=== PATIENT | male | born 1970 | race African-American/Black ===

== ENCOUNTER 2019-05-23 13:12 | Inpatient (IN) ==
[2019-05-23] MEDS ORDERED: DICYCLOMINE 10 MG CAPSULE PO PRN (14:19)
[2019-05-23] MEDS ORDERED: LORazepam 2 MG/1 ML VIAL IV PRN (14:19)
[2019-05-23] MEDS ORDERED: METHOCARBAMOL 750 MG TABLET PO PRN (14:19)
[2019-05-23] MEDS ORDERED: THIAMINE INJ 100 MG, FOLIC ACID INJ 1 MG, MULTIVITAMIN INJ 10 ML in SODIUM CHLORIDE 0.9... IV ONE (14:19)
[2019-05-23] MEDS ORDERED: HydrOXYzine PAMOATE 25 MG CAPSULE PO PRN (14:19)
[2019-05-23] MEDS ORDERED: GLUCAGON 1 MG VIAL IM PRN (14:20)
[2019-05-23] MEDS ORDERED: ACETAMINOPHEN 325 MG TABLET PO PRN (14:20)
[2019-05-23] MEDS ORDERED: ONDANSETRON 4 MG/2 ML VIAL IV PRN (14:20)
[2019-05-23] MEDS ORDERED: DEXTROSE 10% 250 ML BAG IV PRN (14:20)
[2019-05-23 15:11] LABS: Basophils % 0.4 % (0.0-0.8); Eosinophils # 0.3 10*3/uL (0.0-0.87); Eosinophils % 4.9 % (0.00-10.9); Hematocrit 41.9 VOL% (42.0-52.0); Hemoglobin 13.8 GM/DL (14.0-18.0); Immature Granulocytes % 0.4 %; Immature Granulocytes Absolute 0.02 #; Lymphocytes # 1.9 10*3/uL (1.4-4.0); Lymphocytes % 34.9 % (21.2-54.2); Mean Corpuscular HGB Conc 32.9 GM/DL (32-36); Mean Corpuscular Volume 102.4 FL (87-102); Mean Platelet Volume 11.6 FL (9.6-12.0); Neutrophils % 47.4 % (38.7-73.9); Red Blood Count 4.09 MC/CUMM (3.8-5.5); Red Cell Distribution Width 15.7 % (9.3-17.3); White Blood Count 5.3 T/CUMM (4-12)
[2019-05-23 15:12] LABS: Platelet Count 78 T/CUMM (130-400)
[2019-05-23 15:30] LABS: Hypochromasia Slight; Platelet Estimate Decreased
[2019-05-23 15:31] LABS: Albumin 3.3 G/DL (3.4-5.0); Bilirubin,Total 3.6 MG/DL (0.2-1.0); Calcium 9.1 MG/DL (8.5-10.1); Osmolality,Calculated 263.7 MOS/KG (273-304); Total Protein 8.4 G/DL (6.4-8.3)
[2019-05-23 16:30] LABS: Apearance,Urine CLEAR (Clear); Bilirubin,Urine Small mg/dL (Negative); Blood, Urine Small mg/dL (Negative); Glucose,Urine (UA) Negative (Negative); Ketones,Urine Negative (Negative); Mucus,Urine Occasional /LPF (Occasional); Nitrite,Urine Negative (Negative); Protein,Urine 30 MG/DL; RBC,Urine 6 /HPF (0-4); Squamous Epithelial Cell,Urine Occasional /HPF (0-10); Urine Color Amber (Yellow); Urine Specific Gravity 1.026 (1.001-1.035); WBC,Urine 5 /HPF (0-6)
[2019-05-23] MEDS: chlordiazePOXIDE 25 MG CAPSULE PO SCH ×2 (17:15→22:12)
[2019-05-23 18:19] LABS: Barbiturates Screen,Urine Negative (Negative); Benzodiazepines Screen,Urine Negative (Negative); Cannabinoid Screen,Urine Negative (Negative); Opiate Screen,Urine Negative (Negative); Phencyclidine Screen,Urine Negative (Negative)
[2019-05-23] MEDS ORDERED: ENOXAPARIN 40 MG/0.4 ML SYRINGE SUBCUT SCH (21:00)
[2019-05-23] MEDS: SODIUM CHLORIDE 0.9% 1,000 ML IV SCH (22:12)
[2019-05-24] MEDS: chlordiazePOXIDE 25 MG CAPSULE PO SCH ×3 (05:33→17:20)
[2019-05-24 06:06] LABS: Basophils % 0.3 % (0.0-0.8); Eosinophils # 0.3 10*3/uL (0.0-0.87); Eosinophils % 6.4 % (0.00-10.9); Hematocrit 34.4 VOL% (42.0-52.0); Hemoglobin 11.8 GM/DL (14.0-18.0); Immature Granulocytes % 0.3 %; Immature Granulocytes Absolute 0.01 #; Lymphocytes # 1.5 10*3/uL (1.4-4.0); Lymphocytes % 38.5 % (21.2-54.2); Mean Corpuscular HGB Conc 34.3 GM/DL (32-36); Mean Corpuscular Volume 99.7 FL (87-102); Mean Platelet Volume 11.4 FL (9.6-12.0); Monocytes % 10.5 % (1.7-12.7); Red Blood Count 3.45 MC/CUMM (3.8-5.5); Red Cell Distribution Width 15.6 % (9.3-17.3); White Blood Count 3.9 T/CUMM (4-12)
[2019-05-24 06:20] LABS: Platelet Count 53 T/CUMM (130-400)
[2019-05-24 06:34] LABS: Hypochromasia 1+; Platelet Estimate Decreased
[2019-05-24 06:38] LABS: Calcium 8.1 MG/DL (8.5-10.1); Osmolality,Calculated 272.8 MOS/KG (273-304); Risk Ratio 2.61; Thyroid Stimulating Hormone 0.707 uIU/ml (0.358-3.74); VLDL CHOLESTEROL 15.4 MG/DL
[2019-05-24 07:32] LABS: Hepatitis B Core IgM Quant < 0.05 Index; Hepatitis B Surface Ag Quant 0.21 Index; Hepatitis B Surface Ag Result Negative (Negative); Hepatitis C Virus Ab Quant < 0.02 Index; Hepatitis C Virus Ab Result Negative (Negative)
[2019-05-24] MEDS ORDERED: MAGNESIUM SULF RIDER 2 GM in PREMIX 1 EACH IV PRN (08:09)
[2019-05-24] MEDS ORDERED: MAGNESIUM SULF RIDER 4 GM in PREMIX 1 EACH IV PRN (08:09)
[2019-05-24] MEDS ORDERED: NICOTINE 21 MG/24 HR PATCH TRANSDERM SCH (09:00)
[2019-05-24] MEDS ORDERED: THIAMINE 100 MG TABLET PO SCH (09:00)
[2019-05-24] MEDS ORDERED: MULTIVITAMIN (CENTRUM) TABLET PO SCH (09:00)
[2019-05-24] MEDS ORDERED: FOLIC ACID 1 MG TABLET PO SCH (09:00)
[2019-05-24] MEDS: SODIUM CHLORIDE 0.9% 1,000 ML IV SCH (11:49)
[2019-05-24 16:18] VITALS: BP 111/69
== END 2019-05-24 19:01 | disposition left against medical advice (07) | DRG 894 ==
LOC: SUPCPDRO 13:32 → N.4E 13:32
PROVIDERS: ADMIT Internal Medicine; ATTEND Internal Medicine